=== PATIENT | female | born 1985 | race Caucasian/White ===

== ENCOUNTER 2018-12-29 05:19 | Day surgery (SDC) | payer BC ==
[~2018-12-29] VITALS: Ht 162.6 cm; Wt 67.2 kg
[2018-12-29] VITALS (12 sets, daily range): BP systolic 111–131; BP diastolic 59–79; PULSE 66–76; RESP 18–26; Ht 162.6 cm; Wt 67.2 kg
[2018-12-29] MEDS ORDERED: CEFAZOLIN 2 GM/50 ML (PMX) 50 ML IVPB ONE (06:00)
[2018-12-29] MEDS ORDERED: SOD CHLORIDE 0.9% 1,000 ML IV SCH (06:00)
[2018-12-29] MEDS ORDERED: TRAZ-111 PO (06:38)
[2018-12-29] MEDS ORDERED: BUPIVACAINE 0.25% (MPF) 30 ML INJ ONE (06:47)
--- NOTE | 2018-12-29 07:13 | PREAC ---
Date/Time of Note Date/Time of Note DATE: 12/29/18 TIME: 07:11 Anesthesia Eval and Record Evaluation Time Pre-Procedure Interview DATE: 12/29/18 TIME: 07:11 Age 33 Sex female NPO: 8 hrs Preoperative diagnosis Cholelithiasis Planned procedure Laparoscopic cholecystectomy Past Medical History Past Medical History: None Surgery & Anesthesia Issues No known issue Meds Anticoagulation: No Beta Enedelia within 24 hr: No Reason Beta Enedelia not given: Pt. not on B-Enedelia Reported Medications Trazodone Hcl* (Trazodone Hcl*) 50 Mg Tablet, 50 MG PO QHS, #30 TAB 12/29/18 Current Medications Sodium Chloride 1,000 ml @ 75 mls/hr [id number] IV Last administered on 12/29/18at 06:17; Admin Dose 75 MLS/HR; Start 12/29/18 at 06:00; Stop 12/29/18 at 19:19 Meds reviewed: Yes Allergies Coded Allergies: latex (Verified Allergy, Intermediate, itching/ rash, 07/02/13) Uncoded Allergies: anesthesia local (Allergy, Intermediate, itching and rashes., 12/29/18) Allergies Reviewed: Yes Labs/Studies Labs Reviewed: Reviewed by anesthesiologist Result Diagram: 12/29/18 0600 Laboratory Tests 12/29/18 06:00 test: Negative Pre-procedure Exam Last vitals Vital Signs Date Temp Pulse Resp B/P (MAP) Pulse Ox O2 O2 Flow FiO2 Time Delivery Rate 12/29/18 98.7 76 18 124/64 97 Room Air 06:34 (84) Airway: Adequate mouth opening Mallampati: Mallampati I Teeth: Normal Lung: Normal Heart: Normal ASA Physical Status ASA physical status: 1 Emergency: None Planned Anesthetic General/MAC: ETT Planned Pain Management Parenteral pain med Pre-operative Attestations Prior to commencing anesthesia and surgery, the patient was re-evaluated, there was verification of: *The patient's identity *The results of appropriate recent lab work and preoperative vital signs *The above evaluation not changing prior to induction *Anesthetic plan, risk benefits, alternative and complications discussed with patient/family; questions answered; patient/family understands, accepts and wishes to proceed. LINCOLN GONZALEZ MD Dec 29, 2018 07:13
[2018-12-29] MEDS ORDERED: NEOSTIGMINE 3 MG/3 ML SYRINGE ONE ×2 (07:29→08:16)
[2018-12-29] MEDS ORDERED: MEPERIDINE 100 MG INJ ONE (07:29)
[2018-12-29] MEDS ORDERED: SEVOFLURANE 15 MIN ONE (07:29)
[2018-12-29] MEDS ORDERED: SUCCINYLCHOLINE CHLORIDE 100 MG/5 ML SYG IV ONE (07:29)
[2018-12-29] MEDS ORDERED: GLYCOPYRROLATE 0.4 MG INJ ONE ×2 (07:29→08:16)
[2018-12-29] MEDS ORDERED: ROCURONIUM 50 MG INJ ONE (07:29)
[2018-12-29] MEDS ORDERED: LIDOCAINE 2% (SDV) 5 ML INJ ONE (07:29)
[2018-12-29] MEDS ORDERED: PROPOFOL 20 ML ONE (07:29)
[2018-12-29] MEDS ORDERED: METOCLOPRAMIDE 10 MG INJ ONE (08:15)
[2018-12-29] MEDS ORDERED: ONDANSETRON 4 MG INJ ONE (08:15)
--- NOTE | 2018-12-29 08:36 | OPR ---
Date/Time of Note Date/Time of Note DATE: 12/29/18 TIME: 08:33 Operative Report Procedure Date: Dec 29, 2018 Preoperative Diagnosis symptomatic gallstones Postoperative Diagnosis same Operation/Procedure Performed laparoscopic cholecystectomy Surgeon see signature line Resaw Operator none Anesthesia Type: general Estimated Blood Loss: 0 - 10 ml's Transfusion none Specimen gallbladder Grafts/Implants none Complications none Pt Condition Post Procedure: stable Indications This is a 33-year-old female with symptomatic gallstones. She required surgical excision of her gallbladder. Risks alternatives benefits and personal were discussed the patient. Patient expressed understanding and consents to the operation. Procedure Description Patient is taken to the OR and prepped and draped in usual sterile fashion. Surgical timeout was performed. IV antibiotics were given. Infraumbilical transverse incision is made with a 15 blade. Dissection with cautery was carried onto the fascia. The fascia was grasped with [place]'s and divided with curved Charles scissors. 0 Vicryl U stitch was placed into the fascia. Dickerson trocar is introduced. Pneumoperitoneum is established. Midepigastric 12 mm optical trochars placed under direct visualization. Right upper quadrant upper flank 5 mm optical trochars were placed under direct visualization. Upon initial inspection there is some adhesions to the gallbladder which were taken down bluntly. The gallbladder was grasped with the fundus and retracted and lateral cephalad direction. [place] graspers were used to dissect out the cystic duct and cystic artery. The critical view was established. The cystic duct is divided with 3 clips proximally one clip distal and the division was performed with laparoscopic scissors. Cystic artery was divided to close proximal clip distal and the divisions performed laparoscopic scissors. The gallbladder was taken of the gallbladder bed. Good hemostasis status. The gallbladder is retrieved Endo Catch bag. All ports were removed under direct visualization. Overdiuresis tied down. Skin is closed using interrupted and running 4-0 Monocryl. Patient had allergic reaction to local anesthesia last operation and no local anesthesia was injected. Dry dressings were applied. Vilma GALICIA Dec 29, 2018 08:36
[2018-12-29] MEDS ORDERED: HYDROmorphONE 1 MG/5 ML IV SYRINGE IV ONE (08:37)
[2018-12-29] MEDS ORDERED: HYDROCODONE/APAP (5/325) TAB PO ONE (09:00)
[2018-12-29] MEDS ORDERED: OXYCODONE/ACETAMINOPHEN (5/325) TAB PO PRN ×2 (09:00)
[2018-12-29] MEDS ORDERED: HYDROmorphONE 1 MG/5 ML IV SYRINGE IV PRN ×3 (09:00)
[2018-12-29] MEDS ORDERED: METOCLOPRAMIDE 10 MG INJ IV PRN (09:00)
[2018-12-29] MEDS ORDERED: DIPHENHYDRAMINE 50 MG INJ IV PRN (09:00)
[2018-12-29] MEDS ORDERED: ONDANSETRON 4 MG INJ IV PRN (09:00)
[2018-12-29] MEDS ORDERED: MIDAZOLAM 1 MG/ML 2 ML INJ IV PRN (09:00)
[2018-12-29] MEDS ORDERED: MEPERIDINE 25 MG INJ IV PRN (09:00)
--- NOTE | 2018-12-30 08:46 | PAC ---
Date/Time of Note Date/Time of Note DATE: 12/30/18 TIME: 08:45 Post-Anesthesia Notes Post-Anesthesia Note Last documented vital signs Vital Signs Date Temp Pulse Resp B/P (MAP) Pulse Ox O2 O2 Flow FiO2 Time Delivery Rate 12/29/18 97.7 75 18 111/67 100 Room Air 09:36 (82) Activity: WNL Respiratory function: WNL Cardiovascular function: WNL Mental status: Baseline Pain reasonably controlled: Yes Hydration appropriate: Yes Nausea/Vomiting absent: Yes LINCOLN GONZALEZ MD Dec 30, 2018 08:45
== END 2018-12-29 10:14 | disposition home or self-care (01) ==
LOC: SDS 05:19
PROVIDERS: ATTEND Surgery
DX: K80.10 Calculus of gallbladder with chronic cholecystitis without obstruction (principal)
CPT/HCPCS: 47562; 80053; 84703; 85025; 85610; 85730; 88304; J0690; J1170; J2175; J2405; J2710; J2765; J7030